=== PATIENT | male | born 2000 | race Caucasian/White ===

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

== ENCOUNTER 2022-02-10 11:54 | Emergency (ER) | payer OTHER ==
[2022-02-10 12:26] LABS: BASOPHILS # (AUTO) 0.1 10^3/uL (0.0-0.1); BASOPHILS % (AUTO) 0.8 %; EOSINOPHILS # (AUTO) 0.2 10^3/uL (0.0-0.7); HCT - HEMATOCRIT 48.7 % (42.0-52.0); HGB - HEMOGLOBIN 16.3 g/dL (14.0-18.0); LYMPHOCYTES # (AUTO) 3.7 10^3/uL (1.5-3.5); LYMPHOCYTES % (AUTO) 37.7 %; MEAN CORPUSCULAR HEMOGLOBIN 29.3 pg (27.0-31.0); MEAN CORPUSCULAR HGB CONC 33.5 g/dL (32.0-36.0); MEAN CORPUSCULAR VOLUME 87.6 fL (80.0-94.0); MEAN PLATELET VOLUME 9.3 fL (7.4-11.4); MONOCYTES # (AUTO) 0.6 10^3/uL (0.0-1.0); MONOCYTES % (AUTO) 6.3 %; NEUTROPHILS # (AUTO) 5.2 10^3/uL (1.5-6.6); NEUTROPHILS % (AUTO) 52.7 %; PLT - PLATELET COUNT 335 10^3/uL (130-450); RED BLOOD COUNT 5.56 10^6/uL (4.70-6.10); RED CELL DISTRIBUTION WIDTH 12.4 % (12.0-15.0); WHITE BLOOD COUNT 9.8 x10^3/uL (4.8-10.8)
[2022-02-10 12:26] LABS: MUDS CUTOFF CONCENTRATIONS CUTOFF CONC BELOW:
[2022-02-10] MEDS ORDERED: SODIUM CHLORIDE 0.9% IV STA (12:28)
[2022-02-10] MEDS ORDERED: KETAMINE IV STA (12:28)
[2022-02-10 12:29] LABS: BILIRUBIN,URINE NEGATIVE (NEGATIVE); CLARITY,URINE CLEAR (CLEAR); GLUCOSE, URINE (UA) NEGATIVE (NEGATIVE); KETONES,URINE (UA) NEGATIVE (NEGATIVE); LEUKOCYTE ESTERASE, URINE NEGATIVE (NEGATIVE); NITRITE,URINE NEGATIVE (NEGATIVE); OCCULT BLOOD,URINE NEGATIVE (NEGATIVE); PH,URINE 6.5 PH (5.0-7.5); PROTEIN,URINE NEGATIVE (NEGATIVE); UROBILINOGEN,URINE 0.2 (NORMAL) E.U./dL (NORMAL)
--- NOTE | 2022-02-10 12:29 | ED Physician Documentation ---
PD HPI MHE - Stated complaint Stated Complaint: MHE - Chief complaint Chief Complaint: MHE - History obtained from History obtained from: Patient - Additional information Additional information: 21-year-old gentleman with longstanding depression presents for evaluation of depression and suicidal ideation. He has longstanding SI with variable plans but no active plan. He has been under a lot of stress with a new job. He has not been getting any mental health care for about 2 years due to lack of insurance. He has no Comorbidities except for a history of asthma with no current symptoms. Review of Systems Ten Systems: 10 systems reviewed and negative Cardiac: denies: Chest pain / pressure, Palpitations Respiratory: denies: Dyspnea, Cough PD PAST MEDICAL HISTORY - Past Medical History Past Medical History: Yes Respiratory: Asthma - Past Surgical History Past Surgical History: No - Present Medications Home Medications: Ambulatory Orders Medication Instructions Recorded Confirmed No Known Home Medications 02/10/22 02/10/22 - Allergies Allergies/Adverse Reactions: Allergies Allergy/AdvReac Type Severity Reaction Status Date / Time nut - unspecified Allergy Anaphylaxis Verified 02/10/22 12:05 ketamine AdvReac Hallucinati Verified 02/10/22 18:10 ons - Social History Does the pt smoke?: No Smoking Status: Never smoker Does the pt drink ETOH?: No Does the pt have substance abuse?: No - Immunizations Immunizations are current?: Yes - POLST Patient has POLST: No PD ED PE NORMAL - Vitals Vital signs reviewed: Yes - General General: Alert and oriented X 3, Other (Initially smiling but also intermittently tearful) - HEENT HEENT: PERRL, EOMI - Neck Neck: Supple, no meningeal sign, No bony TTP - Cardiac Cardiac: RRR, No murmur - Respiratory Respiratory: No respiratory distress, Clear bilaterally - Abdomen Abdomen: Normal bowel sounds, Soft, Non tender - Back Back: No CVA TTP, No spinal TTP - Derm Derm: Normal color, Warm and dry - Extremities Extremities: No edema, No calf tenderness / cord - Neuro Neuro: Alert and oriented X 3, Normal speech Results - Vitals Vitals: Vital Signs - 24 hr 02/10/22 02/10/22 02/10/22 11:59 13:51 15:53 Temperature 36.8 C Heart Rate 114 H 102 H 95 Respiratory 20 16 25 H Rate Blood Pressure 156/102 H 145/101 H 144/75 H O2 Saturation 97 95 96 02/10/22 19:31 Temperature 36.7 C Heart Rate 95 Respiratory 18 Rate Blood Pressure 145/98 H O2 Saturation 100 Oxygen O2 Source Room air - Labs Labs: Laboratory Tests 02/10/22 02/10/22 02/10/22 12:16 12:22 12:22 WBC 9.8 RBC 5.56 Hgb 16.3 Hct 48.7 MCV 87.6 MCH 29.3 MCHC 33.5 RDW 12.4 Plt Count 335 MPV 9.3 Neut # (Auto) 5.2 Lymph # (Auto) 3.7 H [place] # (Auto) 0.6 Eos # (Auto) 0.2 Baso # (Auto) 0.1 Absolute Nucleated RBC 0.00 Nucleated RBC % 0.0 Sodium 138 Potassium 3.9 Chloride 104 Carbon Dioxide 24 Anion Gap 10.0 BUN 17 Creatinine 0.9 Estimated GFR (MDRD) 106 Glucose 84 Calcium 9.8 Total Bilirubin 0.5 AST 31 ALT 61 H Alkaline Phosphatase 68 Total Protein 8.8 H Albumin 4.8 Globulin 4.0 Albumin/Globulin Ratio 1.2 Lipase 29 TSH Urine Color YELLOW Urine Clarity CLEAR Urine pH 6.5 Ur Specific [place] 1.025 Urine Protein NEGATIVE Urine Glucose (UA) NEGATIVE Urine Ketones NEGATIVE Urine Occult Blood NEGATIVE Urine Nitrite NEGATIVE Urine Bilirubin NEGATIVE Urine Urobilinogen 0.2 (NORMAL) Ur Leukocyte Esterase NEGATIVE Ur Microscopic Review NOT INDICATED Urine Culture Comments NOT INDICATED Salicylates < 6.0 Urine Opiates Screen NEGATIVE Ur Oxycodone Screen NEGATIVE Urine Methadone Screen NEGATIVE Ur Propoxyphene Screen NEGATIVE Acetaminophen < 10 L Ur Barbiturates Screen NEGATIVE Ur Tricyclics Screen NEGATIVE Ur Phencyclidine Scrn NEGATIVE Ur Amphetamine Screen NEGATIVE U Methamphetamines Scrn NEGATIVE U Benzodiazepines Scrn NEGATIVE Urine Cocaine Screen NEGATIVE U Cannabinoids Screen NEGATIVE Ethyl Alcohol < 5.0 SARS-CoV-2 (PCR) 02/10/22 02/10/22 12:22 12:23 WBC RBC Hgb Hct MCV MCH MCHC RDW Plt Count MPV Neut # (Auto) Lymph # (Auto) [place] # (Auto) Eos # (Auto) Baso # (Auto) Absolute Nucleated RBC Nucleated RBC % Sodium Potassium Chloride Carbon Dioxide Anion Gap BUN Creatinine Estimated GFR (MDRD) Glucose Calcium Total Bilirubin AST ALT Alkaline Phosphatase Total Protein Albumin Globulin Albumin/Globulin Ratio Lipase TSH 2.35 Urine Color Urine Clarity Urine pH Ur Specific [place] Urine Protein Urine Glucose (UA) Urine Ketones Urine Occult Blood Urine Nitrite Urine Bilirubin Urine Urobilinogen Ur Leukocyte Esterase Ur Microscopic Review Urine Culture Comments Salicylates Urine Opiates Screen Ur Oxycodone Screen Urine Methadone Screen Ur Propoxyphene Screen Acetaminophen Ur Barbiturates Screen Ur Tricyclics Screen Ur Phencyclidine Scrn Ur Amphetamine Screen U Methamphetamines Scrn U Benzodiazepines Scrn Urine Cocaine Screen U Cannabinoids Screen Ethyl Alcohol SARS-CoV-2 (PCR) NOT DETECTED PD MEDICAL DECISION MAKING - ED course ED course: 21-year-old gentleman presents for the evaluation of chronic suicidal ideation without current active plan, we discussed options for treatment including inpatient treatment, ketamine, or social work evaluation for rapid outpatient follow-up and he would like to try a combination of the ketamine and social work evaluation. Ketamine at a dose of 50 mg over 40 minutes IV drip was ordered. He did not tolerate the ketamine well and it was stopped. Subsequently slept for a while and woke up and talk to the social economist. The social economist was not convinced that he was safe for outpatient treatment and the DCR was summoned who subsequently saw the patient and cleared him for outpatient treatment and will arrange for follow-up. On repeat evaluation prior to discharge patient is denying suicidal ideation to me, he is happy with the current plan and understands he is welcome to return anytime if worse. Departure - Departure Disposition: 01 Home, Self Care Clinical Impression: Depression Qualifiers: Depression Type: major depressive disorder Major depression recurrence: recurrent Active/Remission status: currently active Major depression episode severity: moderate Qualified Code(s): F33.1 - Major depressive disorder, recurrent, moderate Condition: Good Record reviewed to determine appropriate education?: Yes Instructions: ED Depression Comments: You were seen today for anxiety and depression. You did not react well to a trial of ketamine. You were seen today by the DCR and are being referred to counselling, they should contact you within a couple of days. Return if worse. Discharge Date/Time: 02/10/22 19:33
[2022-02-10 12:42] LABS: AMPHETAMINE SCREEN,URINE NEGATIVE (NEGATIVE); BARBITURATE SCREEN,UR NEGATIVE (NEGATIVE); BENZODIAZEPINES SCREEN, URINE NEGATIVE (NEGATIVE); COCAINE SCREEN URINE NEGATIVE (NEGATIVE); METHADONE SCREEN, URINE NEGATIVE (NEGATIVE); METHAMPHETAMINES SCREEN, URINE NEGATIVE (NEGATIVE); OPIATE SCREEN, URINE NEGATIVE (NEGATIVE); OXYCODONE SCREEN, URINE NEGATIVE (NEGATIVE); PROPOXYPHENE SCREEN, URINE NEGATIVE (NEGATIVE); THC CANNABINOID SCREEN, URINE NEGATIVE (NEGATIVE); TRICYCLIC ANTIDEPRESSANT,URINE NEGATIVE (NEGATIVE)
[2022-02-10] MEDS ORDERED: LORazepam 2 MG/ML VIAL IVP STA (13:33)
[2022-02-10 13:43] LABS: ACETAMINOPHEN < 10 ug/mL (10-30); ALBUMIN 4.8 g/dL (3.2-5.5); ALBUMIN/GLOBULIN RATIO 1.2 (1.0-2.2); ALKALINE PHOSPHATASE 68 IU/L (42-121); ALT ALANINE AMINOTRANSFERASE 61 IU/L (10-60); AST ASPARTATE AMINOTRANSFERASE 31 IU/L (10-42); BILIRUBIN,TOTAL 0.5 mg/dL (0.2-1.0); BUN - BLOOD UREA NITROGEN 17 mg/dL (6-20); CALCIUM 9.8 mg/dL (8.5-10.3); CARBON DIOXIDE - CO2 24 mmol/L (21-32); CHLORIDE 104 mmol/L (101-111); CREATININE 0.9 mg/dL (0.6-1.2); ETOH - ETHANOL < 5.0 mg/dL; GFR - MDRD 106 (>89); GLUCOSE 84 mg/dL (70-100); LIPASE 29 U/L (22-51); POTASSIUM 3.9 mmol/L (3.5-5.0); SALICYLATE < 6.0 mg/dL; SODIUM 138 mmol/L (135-145); TOTAL PROTEIN 8.8 g/dL (6.7-8.2)
[2022-02-10 19:33] VITALS: BP 145/98
[2022-02-10 23:12] LABS: CHLAMYDIA TRACHOMATIS DNA NEGATIVE (NEGATIVE); NEISSERIA GONORRHOEAE DNA NEGATIVE (NEGATIVE)
== END 2022-02-10 19:33 | disposition home or self-care (01) ==
LOC: ED 11:54
DX: F33.1 Major depressive disorder, recurrent, moderate (principal); R45.851 Suicidal ideations; F41.9 Anxiety disorder, unspecified; F43.9 Reaction to severe stress, unspecified; T88.7XXA Unspecified adverse effect of drug or medicament, initial encounter; T41.295A Adverse effect of other general anesthetics, initial encounter; Y92.538 Other ambulatory health services establishments as the place of occurrence of the external cause
CPT/HCPCS: 36415; 80053; 80306; 80307; 80320; 80329; 81003; 83690; 84443; 85025; 87491; 87591; 87635; 96365; 96375; 99283; 99284; J2060; 81001; 87086; 87661

== ENCOUNTER 2023-11-09 22:34 | Emergency (ER) | payer OTHER ==
--- NOTE | 2023-11-09 23:15 | XRAY Report ---
PROCEDURE: Chest 2V INDICATIONS: coughing/ pain L SIDE RIB TECHNIQUE: 2 views of the chest were acquired. COMPARISON: None. FINDINGS: Surgical changes and devices: None. Lungs and pleura: Mild peribronchial thickening. No dense airspace disease or pleural effusion. Low lung volumes Mediastinum: Normal heart size Bones and chest wall: Unremarkable IMPRESSION: Mild peribronchial thickening, possibly viral infection/bronchitis. Low lung volumes. No dense airspa ce disease or pleural effusion Reviewed by: Mao Guevara MD on 11/09/2023 11:14 PM PDT Approved by: Mao Guevara MD on 11/09/2023 11:14 PM PDT Station ID: [id number]
--- NOTE | 2023-11-10 00:58 | ED Physician Documentation ---
History of Present Illness - Stated complaint Stated Complaint: L SIDE PX - Chief complaint Chief Complaint: Resp - History obtained from History obtained from: Patient - Additonal information Additional information: 23-year-old man presents with left-sided pain with coughing and laughing after multiple day bout with viral URI. Patient was placed on doxycycline 100 mg daily as of yesterday and has had not had improvement yet. PD PAST MEDICAL HISTORY - Past Medical History Past Medical History: Yes Cardiovascular: None Respiratory: Asthma Neuro: None Endocrine/Autoimmune: None GI: None : None HEENT: None Psych: None Musculoskeletal: None Derm: None - Past Surgical History Past Surgical History: No - Present Medications Home Medications: Ambulatory Orders Medication Instructions Recorded Confirmed Doxycycline [Vibramycin] 100 mg PO DAILY 11/09/23 predniSONE [Prednisone] 20 mg PO DAILY 11/09/23 Codeine Phosphate/Guaifenesin 5 ml PO QPM PRN #50 ml 11/10/23 [Codeine-Guaifen 10-100 mg/5 ml] - Allergies Allergies/Adverse Reactions: Allergies Allergy/AdvReac Type Severity Reaction Status Date / Time nut - unspecified Allergy Anaphylaxis Verified 11/09/23 22:46 ketamine AdvReac Hallucinati Verified 11/09/23 22:46 ons - Social History Does the pt smoke?: No Smoking Status: Never smoker Does the pt drink ETOH?: No Does the pt have substance abuse?: No - Immunizations Immunizations are current?: Yes - POLST Patient has POLST: No PD ED PE NORMAL - Vitals Vital signs reviewed: Yes - General General: Alert and oriented X 3, No acute distress, Well developed/nourished - HEENT HEENT: Atraumatic, PERRL, EOMI - Neck Neck: Supple, no meningeal sign - Cardiac Cardiac: RRR - Respiratory Respiratory: No respiratory distress, Clear bilaterally - Abdomen Abdomen: Non tender, Non distended - Derm Derm: Normal color, Warm and dry, No rash Results - Vitals Vitals: Vital Signs - 24 hr 11/09/23 11/10/23 22:39 01:02 Temperature 36.1 C L 36.8 C Heart Rate 107 H 95 Respiratory 16 16 Rate Blood Pressure 150/78 H 137/91 H O2 Saturation 98 96 Oxygen O2 Source Room air PD Medical Decision Making - ED course ED course: 23-year-old man presents with left lower rib cage pain, worse with coughing and deep breathing, likely due to sore intercostal muscles from coughing. Chest x- ray benign, likely viral bronchitis. Provided patient with outpatient resources including prescription strength cough medication. Return precautions given. Departure - Departure Disposition: 01 Home, Self Care Clinical Impression: Bronchitis Condition: Stable Instructions: ED Viral Syndrome Prescriptions: Codeine Phosphate/Guaifenesin [Codeine-Guaifen 10-100 mg/5 ml] 5 ml PO QPM PRN #50 ml PRN Reason: Cough Comments: You were seen in the emergency department for persistent painful cough. Cough medicine was sent to [facility]. Please follow-up with your primary care provider and return to the emergency department if you have any new or worsening symptoms or other concerns. Forms: PCP List, Activity restrictions Discharge Date/Time: 11/10/23 01:04
[2023-11-10 01:07] VITALS: BP 137/91; O2SAT 96
== END 2023-11-10 01:04 | disposition home or self-care (01) ==
LOC: ED 22:34
DX: J40 Bronchitis, not specified as acute or chronic (principal)
CPT/HCPCS: 99283